=== PATIENT | female | born 1965 | race Caucasian/White ===

== ENCOUNTER → 2023-09-02 09:43 | Outpatient (REF) | payer BC, SELFPAY ==
[2023-09-02 11:27] LABS: FSH 47.8 mIU/ml; Prolactin 15.4 ng/ml (3.0-18.6)
[2023-09-02 11:43] LABS: Estradiol 15.1 pg/ml
[2023-09-04 02:39] LABS: Growth Hormone 2.52 ng/mL (0.05-8.00)
[2023-09-06 12:30] LABS: 24 Hour Urine Total Volume Random mL; Creatinine, Urine per Volume 159 mg/dL; Urine Collection Length 24 hr
== END ==
LOC: REG 09:43
PROVIDERS: ATTENDING PHYSICIAN Nurse Practitioner Adult Health
DX: E23.7 Disorder of pituitary gland, unspecified (principal)
CPT/HCPCS: 36415; 82530; 82670; 83001; 83002; 83003; 84146

== ENCOUNTER → 2023-10-23 10:37 | Outpatient (REF) | payer OTHER, SELFPAY | LOC: RAD 10:37 | PROVIDERS: ATTENDING PHYSICIAN Internal Medicine Gastroenterology; FAMILY PHYSICIAN Nurse Practitioner Adult Health | DX: K51.90 Ulcerative colitis, unspecified, without complications (principal); R11.0 Nausea; R10.31 Right lower quadrant pain; R10.13 Epigastric pain | CPT/HCPCS: 74177; Q9967 ==

== ENCOUNTER → 2023-12-12 06:22 | Day surgery (SDC) | payer OTHER, SELFPAY | LOC: GI 06:22 | PROVIDERS: ATTENDING PHYSICIAN Internal Medicine Gastroenterology | DX: K57.30 Diverticulosis of large intestine without perforation or abscess without bleeding (principal); R19.4 Change in bowel habit; R93.3 Abnormal findings on diagnostic imaging of other parts of digestive tract; R10.31 Right lower quadrant pain; K22.2 Esophageal obstruction; R10.13 Epigastric pain; R11.0 Nausea; Z98.84 Bariatric surgery status | CPT/HCPCS: 45380; 43235; 88305 ==

== ENCOUNTER → 2024-06-25 17:17 | Outpatient (REF) | payer OTHER, SELFPAY | LOC: MRI 3T 17:17 | PROVIDERS: ATTENDING PHYSICIAN Nurse Practitioner Adult Health | DX: G93.2 Benign intracranial hypertension (principal); R51.9 Headache, unspecified | CPT/HCPCS: 70544; 70553; A9575 ==

== ENCOUNTER → 2024-10-29 12:47 | Outpatient (REF) | payer OTHER, SELFPAY | LOC: RCS 12:47 | PROVIDERS: ATTENDING PHYSICIAN Nurse Practitioner Adult Health | DX: R00.2 Palpitations (principal) | CPT/HCPCS: 93225; 93226 ==

== ENCOUNTER → 2025-04-08 15:46 | Outpatient (REF) | payer OTHER, SELFPAY | LOC: RAD 15:46 | PROVIDERS: ATTENDING PHYSICIAN Internal Medicine Gastroenterology; FAMILY PHYSICIAN Nurse Practitioner Adult Health | DX: R10.84 Generalized abdominal pain (principal) | CPT/HCPCS: 74177; Q9967 ==

== ENCOUNTER → 2025-05-19 18:18 | Outpatient (REF) | payer OTHER, SELFPAY | LOC: MRI 18:18 | PROVIDERS: ATTENDING PHYSICIAN Internal Medicine Gastroenterology; FAMILY PHYSICIAN Nurse Practitioner Adult Health | DX: K86.89 Other specified diseases of pancreas (principal) | CPT/HCPCS: 74183; A9575 ==

== ENCOUNTER → 2025-07-01 18:04 | Outpatient (REF) | payer OTHER, SELFPAY | LOC: MRI 3T 18:04 | PROVIDERS: ATTENDING PHYSICIAN Nurse Practitioner Adult Health | DX: G93.2 Benign intracranial hypertension (principal); R51.9 Headache, unspecified | CPT/HCPCS: 70544; 70553; A9575 ==